=== PATIENT | male | born 1960 | race Two or more races ===

== ENCOUNTER 2024-09-25 09:15 | Emergency (ER) | payer OTHER ==
[~2024-09-25] VITALS: Ht 170.2 cm; Wt 77.8 kg
--- NOTE | 2024-09-25 10:18 | DVH ---
XY CHEST TWO VIEWS ROUTINE, HISTORY: PAINFUL COUGH COMPARISON: None None TECHNICAL DATA: 2 view of the chest was obtained. FINDINGS: Lines and tubes: None Cardiomediastinal silhouette: normal Pulmonary vasculature: normal Lung expansion: normal Lung airspace: normal Lung interstitium: normal Pleura: normal Pneumothorax: no Bones: Unremarkable Other: no IMPRESSION: No acute intrathoracic abnormality.
[2024-09-25] MEDS ORDERED: GUAI600T78 PO (10:59)
[2024-09-25] MEDS ORDERED: PROM1SOL4 PO (10:59)
[2024-09-25] MEDS ORDERED: AUG875T PO (10:59)
[2024-09-25] MEDS ORDERED: BENZ100C97 PO (10:59)
--- NOTE | 2024-09-25 10:59 | ED.PDOC ---
Musculoskeletal HPI Comments 64-year-old male with no MHx presents with a chief complaint of a nonproductive cough for 4 days. Associated with a sore throat. He has taken [id number] cough medicine with some improvement Denies fevers chills night sweats unintentional weight loss Denies persistent chest pain, shortness of breath, leg swelling Denies history of asthma nor any breathing conditions Denies history of pneumonia Denies recent international travel Chief Complaint: Cough Time Seen by MD: 09:35 Primary Care Provider: NONE Reviewed Notes: Nurses Notes, Medications, Allergies Allergies: Coded Allergies: NO KNOWN ALLERGIES (Unverified , 09/25/24) Home Meds Active Scripts Guaifenesin (Mucinex) 600 Mg Tab, 1 TAB PO BID for 7 Days, #14 TAB 0 Refills Prov:ALISHA AGUILAR NP 09/25/24 Promethazine-Dm (Promethazine Dm 6.25-15 mg/5Ml) 1 Sharon Sharon, 5 ML PO QHSP PRN for 10 Days, #50 ML 0 Refills Prov:ALISHA AGUILAR NP 09/25/24 Benzonatate (Benzonatate) 100 Mg Cap, 1 CAP PO TID for 10 Days, #30 CAP 0 Refills Prov:ALISHA AGUILAR NP 09/25/24 Amoxicillin & Pot Clavulanate (AUGMENTIN TABLET) 875 Mg Tb, 875 MG PO BID for 7 Days, #14 TAB 0 Refills Prov:ALISHA AGUILAR NP 09/25/24 Information Source: Patient Mode of Arrival: Ambulatory Family History Family History: Reviewed,noncontributory to illness Social History Smoker: Non-Smoker Alcohol: Denies ETOH Use Drugs: Denies Drug Use All Other Systems: Reviewed and Negative (Per HPI) Physical Exam General Appearance: No Apparent Distress, Normal HEENT: Normal ENT Inspection, Pharynx Normal, TMs Normal Neck: Full Range of Motion, Non-Tender, Normal, Normal Inspection Respiratory: Chest Non-Tender, Lungs Clear, No Accessory Muscle Use, No Respiratory Distress, Normal Breath Sounds Cardiovascular: No Murmur, No Gallop, Regular Rate/Rhythm Breast Exam: Deferred Gastrointestinal: No Organomegaly, Non Tender, No Pulsatile Mass, Normal Bowel Sounds, Soft Genitalia: Deferred Pelvic: Deferred Rectal: Deferred Extremities: No calf tenderness, Normal capillary refill, Normal inspection, Normal range of motion, Non-tender, No pedal edema Musculoskeletal : Apperance: Normal Neurologic: Alert, No Motor Deficits, Normal Affect, Normal Mood, No Sensory Deficits Cerebellar Function: Normal Reflexes: Normal Skin: Dry, Normal Color, Warm Lymphatic: No Adenopathy Was a procedure done? Was a procedure done?: No Differential Diagnosis EXT Differential Diagnosis: Other X-Ray, Labs, Meds, VS Vital Signs Date Time Temp Pulse Resp B/P (MAP) Pulse Ox O2 Delivery O2 Flow Rate FiO2 09/25/24 11:05 98.3 94 18 148/86 (106) 97 98.3 09/25/24 09:42 18 97 Room Air* 0 21 09/25/24 09:38 93 09/25/24 09:36 98.3 94 18 148/86 (106) 97 98.3 X-Ray, Labs, Meds, VS Comment The patient is overall well-appearing nontoxic on exam. On physical exam, respirations even and unlabored, clear to auscultation bilaterally. Oxygen stable on room air. Did not have any focal lung findings and therefore chest x-ray was not indicated during this exam Low suspicion of strep pharyngitis given physical exam findings and patient's presenting symptoms No signs of meningismus on exam Overall, the patient is well hydrated and nontoxic. Plan for symptomatic control for fever and pain as needed. The patient was able to tolerate p.o. intake in the ED. at this time, patient is safe for discharge home. The exam findings and plan discussed. We will discharge home with PCP follow up and strict return precautions. Discussed that cough can linger up to 6 weeks after viral URI Supportive care and return precautions discussed Counseled viral infection and explained that antibiotics would not be helpful in resolving the illness sooner. Recommended vitamin C, rest, handwashing, and symptomatic care. Time of 1ST Reevaluation: 10:45 Reevaluation 1ST: Improved Patient Education/Counseling: Diagnosis, Treatment Family Education/Counseling: Diagnosis, Treatment Departure 1 Departure Time of Disposition: 10:57 Impression: Primary Impression: Viral syndrome Disposition: HOME / SELF CARE / HOMELESS Condition: Stable e-Prescriptions Guaifenesin (Mucinex) 600 Mg Tab 1 TAB PO BID for 7 Days, #14 TAB 0 Refills Prov: ALISHA AGUILAR ICT DEVELOPER 09/25/24 Promethazine-Dm (Promethazine Dm 6.25-15 mg/5Ml) 1 Sharon Sharon 5 ML PO QHSP PRN for 10 Days, #50 ML 0 Refills Prov: ALISHA AGUILAR NP 09/25/24 Benzonatate (Benzonatate) 100 Mg Cap 1 CAP PO TID for 10 Days, #30 CAP 0 Refills Prov: ALISHA AGUILAR NP 09/25/24 Amoxicillin & Pot Clavulanate (AUGMENTIN TABLET) 875 Mg Tb 875 MG PO BID for 7 Days, #14 TAB 0 Refills Prov: ALISHA AGUILAR NP 09/25/24 Critical Care Note Critical Care Time?: No Stability Stability form required: No Heart Score Heart Score: Heart Score Response (Comments) Value History N/A 0 EKG N/A 0 Age N/A 0 Risk Factors N/A 0 Troponin N/A 0 Total 0 ALISHA AGUILAR NP Sep 25, 2024 10:59
[2024-09-25 11:05] VITALS: BP 148/86; PULSE 94; RESP 18; TEMP 98.3; O2SAT 97
--- NOTE | 2024-09-26 06:54 | ECG ---
[facility] Test Date: 2024-09-25 Test Time: 09:38:15 Pat Name: BARBARA DEL RIO Department: ER Room: Gender: M Table Keeper: GRACE : 1960 Requested By: ALISHA AGUILAR Order Number: [id number] Reading MD: Joey Ruiz Measurements Intervals House Rate: 93 P: 33 KS: 156 QRS: 12 QRSD: 88 T: 43 QT: 359 QTc: 447 Interpretive Statements Sinus rhythm Electronically Signed On 09-28-2024 17:21:13 PDT by Joey Ruiz Please click the below link to view image of tracing.
== END 2024-09-25 11:09 | disposition home or self-care (01) ==
LOC: ER 09:15
DX: B34.9 Viral infection, unspecified (principal); R05.9 Cough, unspecified; Z79.899 Other long term (current) drug therapy
CPT/HCPCS: 71046; 93005